=== PATIENT | male | born 1985 | race Hispanic/Latino ===

== ENCOUNTER 2021-08-11 19:16 | Emergency (ER) | payer SELFPAY ==
[2021-08-11] MEDS ORDERED: Lidocaine 1% PF 5 ML VIAL ONE (20:27)
[2021-08-11] MEDS ORDERED: Bupivacaine 0.25% 10 ML VIAL ONE (20:27)
[2021-08-11] MEDS ORDERED: CEFAZOLIN 2 GM VIAL ONE (21:02)
[2021-08-11] MEDS ORDERED: Boostrix 0.5 ML (Tdap) VIAL ONE (21:02)
== END 2021-08-11 22:25 | disposition home or self-care (01) ==
LOC: ERS 19:16
DX: S62.633B Displaced fracture of distal phalanx of left middle finger, initial encounter for open fracture (principal); W23.0XXA Caught, crushed, jammed, or pinched between moving objects, initial encounter; Z23 Encounter for immunization
CPT/HCPCS: 11760; 90471; 90715; 96365; J0690; S0020